=== PATIENT | female | born 1970 | race Caucasian/White ===

== ENCOUNTER 2023-01-10 22:10 | Emergency (ER) | payer OTHER ==
[~2023-01-10] VITALS: Ht 167.6 cm; Wt 81.6 kg
[~2023-01-10 22:10] MED LIST: ABI10 PO; ESK300 PO
[2023-01-10 22:25] VITALS: BP 120/83; PULSE 110; RESP 17; TEMP 98.3; O2SAT 95
--- NOTE | 2023-01-10 22:28 | NUR ---
TO LOBBY A/W BED AMBULATORY
--- NOTE | 2023-01-10 23:20 | NUR ---
PT TO BED 12
[2023-01-11] MEDS ORDERED: ALBUTEROL 0.083% 2.5 MG/3 ML NEBU INH ONE (00:10)
[2023-01-11 00:17] VITALS: PULSE 93; RESP 15; O2SAT 97
[2023-01-11] MEDS ORDERED: ALBU0.0912 INH (00:36)
[2023-01-11 00:44] VITALS: BP 126/61; PULSE 97; RESP 24; TEMP 98.3; O2SAT 100
--- NOTE | 2023-01-11 00:44 | NUR ---
Patient discharged with v/s stable. Written and verbal after care instructions given and explained. New rx [place] Patient verbalized understanding. Ambulatory with steady gait. All questions addressed prior to discharge. Advised to follow up with PMD.
== END 2023-01-11 00:44 | disposition left against medical advice (07) ==
LOC: MED 22:10
DX: R06.02 Shortness of breath (principal); R05.9 Cough, unspecified; I10 Essential (primary) hypertension; Z79.899 Other long term (current) drug therapy
CPT/HCPCS: 71045; 94640; 99283; J7613

== ENCOUNTER 2023-01-25 08:52 | Inpatient (IN) | payer OTHER ==
[~2023-01-25] VITALS: Ht 172.7 cm; Wt 81.6 kg
[~2023-01-25 08:52] MED LIST changes: +ALBU0.0912 INH
[2023-01-25 09:17] VITALS: BP 142/119; PULSE 108; PULSE 118; RESP 22; TEMP 99.4; O2SAT 88
[2023-01-25] MEDS ORDERED: ALBUTEROL 0.083% 2.5 MG/3 ML NEBU INH ONE (09:40)
[2023-01-25] MEDS ORDERED: HYDROcodone/APAP 5/325 MG 1 TAB TAB PO ONE (09:40)
[2023-01-25 09:51] VITALS: PULSE 109; RESP 18; O2SAT 97
[2023-01-25 10:16] LABS: BASOPHILS % (AUTO) 0.4 % (0.0-2.0); EOSINOPHILS # (AUTO) 0.2 K/uL (0-0.4); EOSINOPHILS % (AUTO) 2.6 % (0.0-4.0); HEMATOCRIT 37.8 % (36-48); HEMOGLOBIN 12.5 g/dL (12.0-16.0); LYMPHOCYTES # (AUTO) 1.1 K/uL (2.5-16.5); LYMPHOCYTES % (AUTO) 14.2 % (20.5-51.1); MEAN CORPUSCULAR HEMOGLOBIN 28 pg (27-31); MEAN CORPUSCULAR HGB CONC 33 g/dL (33-37); MEAN CORPUSCULAR VOLUME 83.6 fL (80-94); MONOCYTES # (AUTO) 0.5 K/uL (0.8-1.0); MONOCYTES % (AUTO) 6.5 % (1.7-9.3); NEUTROPHILS # (AUTO) 6.1 K/uL (1.8-7.7); NEUTROPHILS % (AUTO) 76.3 % (42.2-75.2); PLATELET COUNT (AUTO) 385 K/uL (140-450); RED BLOOD CELL COUNT(AUTO) 4.52 MIL/uL (4.20-5.40); RED CELL DISTRIBUTION WIDTH 13.7 % (11.6-13.7)
[2023-01-25] MEDS ORDERED: diphenhydrAMINE 50 MG/ML VIAL IVP ONE (10:25)
[2023-01-25 10:35] LABS: FLU A ANTIGEN negative (NEGATIVE); FLU B ANTIGEN NEGATIVE (NEGATIVE)
[2023-01-25 10:58] LABS: ALANINE AMINOTRANSFERASE 17 U/L (12-78); ALBUMIN 2.3 g/dL (3.4-5.0); ALKALINE PHOSPHATASE 79 U/L (50-136); ANION GAP 10.1 (8-16); ASPARTATE AMINOTRANSFERASE 23 U/L (15-37); CALCIUM 8.4 mg/dL (8.5-10.1); CARBON DIOXIDE 26.9 mmol/L (21-32); CHLORIDE 100 mmol/L (98-107); GFR ARICAN-AMERICAN 75 mL/min (>90); GFR NON ARICAN-AMERICAN 62 mL/min (>90); GLUCOSE 87 mg/dL (74-106); SODIUM SERUM 133 mmol/L (136-145); TOTAL BILIRUBIN 0.4 mg/dL (0.0-1.0); TOTAL PROTEIN, SERUM 7.7 g/dL (6.4-8.2); UREA NITROGEN, BLOOD 17 mg/dL (7-18)
[2023-01-25] MEDS ORDERED: ACETAMINOPHEN EXTRA STRENGTH 500 MG TAB PO ONE (12:15)
[2023-01-25 12:45] LABS: LACTIC ACID 1.2 mmol/L (0.4-2.0)
[2023-01-25] MEDS ORDERED: AZITHROMYCIN 500 MG in DEXTROSE 5% 250 ML IV ONE (13:05)
[2023-01-25] MEDS ORDERED: POTASSIUM CHLORIDE 10 MEQ TABER PO PRN (13:55)
[2023-01-25] MEDS ORDERED: MAG SULF 2000 MG/WATER PREMIX 50 ML IV PRN (13:55)
[2023-01-25] MEDS ORDERED: HYDROcodone/APAP 5/325 MG 1 TAB TAB PO PRN (13:55)
[2023-01-25] MEDS ORDERED: KCL 20 MEQ IN 100 mL PREMIX 200 ML IV PRN (13:55)
[2023-01-25] MEDS ORDERED: ONDANSETRON 4 MG/2 ML VIAL IVP PRN (13:55)
[2023-01-25] MEDS ORDERED: ZOLPIDEM 5 MG TAB PO PRN (13:55)
[2023-01-25] MEDS ORDERED: ACETAMINOPHEN 325 MG TAB PO PRN (13:55)
[2023-01-25] MEDS ORDERED: AZITHROMYCIN 500 MG INJ VIAL IV ONE (15:18)
[2023-01-25] MEDS ORDERED: cefTRIAXone 1,000 MG VIAL ONE (16:12)
[2023-01-25] MEDS: methylPREDNISolone SS 40 MG/ML VIAL IVP SCH ×2 (18:04→23:46)
[2023-01-25] MEDS: ALBUTEROL SULFATE/IPRATROPIU 3 ML SOL IH SCH (19:33)
[2023-01-25 19:37] VITALS: PULSE 107; RESP 20; O2SAT 96
[2023-01-25 20:15] VITALS: BP 118/65; PULSE 106; PULSE 110; RESP 18; TEMP 98.1; O2SAT 96
[2023-01-26] VITALS (11 sets, daily range): BP systolic 99–124; BP diastolic 52–73; PULSE 63–111; RESP 18–22; TEMP 96–98.8; O2SAT 80–97
[2023-01-26] MEDS: ALBUTEROL SULFATE/IPRATROPIU 3 ML SOL IH SCH ×4 (01:19→19:27)
[2023-01-26] MEDS: methylPREDNISolone SS 40 MG/ML VIAL IVP SCH ×4 (05:16→23:03)
[2023-01-26 06:22] LABS: BASOPHILS % (AUTO) 0.2 % (0.0-2.0); EOSINOPHILS % (AUTO) 0.1 % (0.0-4.0); HEMATOCRIT 39.1 % (36-48); LYMPHOCYTES # (AUTO) 0.8 K/uL (2.5-16.5); LYMPHOCYTES % (AUTO) 14.2 % (20.5-51.1); MEAN CORPUSCULAR HEMOGLOBIN 28 pg (27-31); MEAN CORPUSCULAR HGB CONC 33 g/dL (33-37); MEAN CORPUSCULAR VOLUME 84.3 fL (80-94); MONOCYTES # (AUTO) 0.1 K/uL (0.8-1.0); MONOCYTES % (AUTO) 1.3 % (1.7-9.3); NEUTROPHILS # (AUTO) 4.9 K/uL (1.8-7.7); NEUTROPHILS % (AUTO) 84.2 % (42.2-75.2); PLATELET COUNT (AUTO) 375 K/uL (140-450); RED BLOOD CELL COUNT(AUTO) 4.64 MIL/uL (4.20-5.40); WHITE BLOOD COUNT (AUTO) 5.8 K/uL (4.8-10.8)
[2023-01-26 06:38] LABS: ANION GAP 12.3 (8-16); CALCIUM 8.9 mg/dL (8.5-10.1); CARBON DIOXIDE 24.9 mmol/L (21-32); CREATININE 0.9 mg/dL (0.6-1.3); POTASSIUM 4.2 mmol/L (3.5-5.1)
[2023-01-26] MEDS: LORazepam 1 MG TAB PO PRN (08:45)
[2023-01-26] MEDS: DOCUSATE SODIUM 100 MG GELCAP PO SCH (08:45)
[2023-01-26] MEDS: ENOXAPARIN 40 MG/0.4 ML SYR SUBQ SCH (08:49)
[2023-01-26] MEDS: MORPHINE SULFATE 4 MG/ML SYR IVP PRN ×2 (09:54→20:02)
[2023-01-26] MEDS ORDERED: AZITHROMYCIN 500 MG in DEXTROSE 5% 250 ML IV SCH (16:00)
[2023-01-27] VITALS (8 sets, daily range): BP systolic 96–122; BP diastolic 52–72; PULSE 68–85; RESP 14–18; TEMP 96.5–97.4; O2SAT 92–99
[2023-01-27] MEDS: ALBUTEROL SULFATE/IPRATROPIU 3 ML SOL IH SCH ×3 (00:10→09:52)
[2023-01-27] MEDS: methylPREDNISolone SS 40 MG/ML VIAL IVP SCH (05:18)
[2023-01-27] MEDS: LORazepam 1 MG TAB PO PRN ×2 (05:26→09:45)
[2023-01-27 06:59] LABS: BASOPHILS % (AUTO) 0.1 % (0.0-2.0); HEMATOCRIT 36.7 % (36-48); HEMOGLOBIN 11.9 g/dL (12.0-16.0); LYMPHOCYTES # (AUTO) 1.2 K/uL (2.5-16.5); LYMPHOCYTES % (AUTO) 8.3 % (20.5-51.1); MEAN CORPUSCULAR HEMOGLOBIN 27 pg (27-31); MEAN CORPUSCULAR HGB CONC 33 g/dL (33-37); MEAN CORPUSCULAR VOLUME 84.2 fL (80-94); MONOCYTES # (AUTO) 0.4 K/uL (0.8-1.0); MONOCYTES % (AUTO) 2.7 % (1.7-9.3); NEUTROPHILS # (AUTO) 12.6 K/uL (1.8-7.7); NEUTROPHILS % (AUTO) 88.9 % (42.2-75.2); PLATELET COUNT (AUTO) 402 K/uL (140-450); RED BLOOD CELL COUNT(AUTO) 4.36 MIL/uL (4.20-5.40); WHITE BLOOD COUNT (AUTO) 14.2 K/uL (4.8-10.8)
[2023-01-27 07:07] LABS: ANION GAP 14.1 (8-16); CALCIUM 8.8 mg/dL (8.5-10.1); CARBON DIOXIDE 23.4 mmol/L (21-32); POTASSIUM 4.5 mmol/L (3.5-5.1)
[2023-01-27] MEDS: ENOXAPARIN 40 MG/0.4 ML SYR SUBQ SCH (09:37)
[2023-01-27] MEDS: DOCUSATE SODIUM 100 MG GELCAP PO SCH (09:37)
== END 2023-01-27 13:05 | disposition left against medical advice (07) | DRG 720 ==
LOC: MED 08:52 → MTU 13:56
PROVIDERS: ADMIT Internal Medicine; ATTEND Internal Medicine
DX: A41.9 Sepsis, unspecified organism (principal); J96.01 Acute respiratory failure with hypoxia; E43 Unspecified severe protein-calorie malnutrition; J18.9 Pneumonia, unspecified organism; E87.1 Hypo-osmolality and hyponatremia; Z53.29 Procedure and treatment not carried out because of patient's decision for other reasons; I10 Essential (primary) hypertension; Z79.899 Other long term (current) drug therapy; Z68.27 Body mass index [BMI] 27.0-27.9, adult
CPT/HCPCS: 36415; 71045; 71275; 80048; 80053; 83605; 83735; 83880; 84484; 85025; 85379; 87040; 87081; 93005; 94640; 94729; 96374; 96375; 99285; J0456; J0696; J1200; J1650; J2270; J2920; J7060; J7613; Q0092; Q9967

== ENCOUNTER 2023-01-27 16:24 | Emergency (ER) | payer OTHER ==
[~2023-01-27] VITALS: Ht 162.6 cm; Wt 70.3 kg
[2023-01-27 16:59] VITALS: BP 140/89; PULSE 80; RESP 22; TEMP 98.2; O2SAT 95
[2023-01-27] MEDS ORDERED: ALBUTEROL 0.083% 2.5 MG/3 ML NEBU INH ONE (19:10)
[2023-01-27] MEDS ORDERED: MAG SULF 2000 MG/WATER PREMIX 50 ML IV ONE (19:10)
[2023-01-27] MEDS ORDERED: methylPREDNISolone SS 125 MG in WATER STERILE 2 ML IV ONE (19:10)
[2023-01-27 19:37] LABS: BLOOD GAS BASE EXCESS 1.2 mmol/L (-2.0-2.0); BLOOD GAS HCO3 24.1 mmol/L (22-26); BLOOD GAS O2 SAT% 94.9 % (92.0-98.5); BLOOD GAS PCO2 32.9 mmHg (35-45); BLOOD GAS PH 7.483 (7.35-7.45); BLOOD GAS PO2 67.9 mmHg (75-100)
[2023-01-27 20:03] VITALS: PULSE 72; RESP 20; O2SAT 92
[2023-01-27 20:22] LABS: BASOPHILS # (AUTO) 0.1 K/uL (0.00-0.22); BASOPHILS % (AUTO) 0.5 % (0.0-2.0); HEMATOCRIT 37.5 % (36-48); HEMOGLOBIN 12.2 g/dL (12.0-16.0); LYMPHOCYTES % (AUTO) 13.6 % (20.5-51.1); MEAN CORPUSCULAR HEMOGLOBIN 27 pg (27-31); MEAN CORPUSCULAR HGB CONC 32 g/dL (33-37); MEAN CORPUSCULAR VOLUME 84.7 fL (80-94); MONOCYTES # (AUTO) 0.9 K/uL (0.8-1.0); MONOCYTES % (AUTO) 6.5 % (1.7-9.3); NEUTROPHILS # (AUTO) 11.5 K/uL (1.8-7.7); NEUTROPHILS % (AUTO) 79.4 % (42.2-75.2); PLATELET COUNT (AUTO) 414 K/uL (140-450); RED BLOOD CELL COUNT(AUTO) 4.43 MIL/uL (4.20-5.40); RED CELL DISTRIBUTION WIDTH 14.2 % (11.6-13.7); WHITE BLOOD COUNT (AUTO) 14.5 K/uL (4.8-10.8)
[2023-01-27 20:47] LABS: LACTIC ACID 1.3 mmol/L (0.4-2.0)
[2023-01-27] MEDS ORDERED: methylPREDNISolone SS 125 MG/2 ML VIAL ONE (22:17)
[2023-01-28 00:43] VITALS: BP 132/88; PULSE 76; RESP 12; TEMP 98; O2SAT 98
== END 2023-01-28 00:43 | disposition left against medical advice (07) ==
LOC: MED 16:24
DX: J84.89 Other specified interstitial pulmonary diseases (principal); R06.02 Shortness of breath; Z79.899 Other long term (current) drug therapy
CPT/HCPCS: 36415; 36600; 71250; 71275; 82803; 83605; 85025; 85379; 87040; 93005; 94640; 96365; 96366; 96375; 99285; J2930; J3475; J7613; Q9967